=== PATIENT | female | born 1995 | race African-American/Black ===

== ENCOUNTER 2017-02-12 18:50 | Emergency (ER) | payer OTHER ==
[~2017-02-12] VITALS: Ht 157.5 cm; Wt 52.3 kg
[2017-02-12 18:52] VITALS: BP 109/53; PULSE 94; RESP 16; TEMP 97.8; O2SAT 100
--- NOTE | 2017-02-12 19:41 | PD ---
Physical Exam Time Seen by Provider: 19:38 Narrative 22 year old female presents for evaluation of RLQ pain. Pt has history of ovarian cyst and pain is similar. Pain is 7/10. Exacerbated by touch. No vaginal discharge or bleeding. No urinary symptoms or diarrhea. LMP was last week. Denies fever or chills. No significant medical history. Data Data Last Documented VS Vital Signs Date Time Temp Pulse Resp B/P Pulse Ox O2 Delivery O2 Flow Rate FiO2 02/12/17 18:52 97.8 94 16 109/53 100 Room Air [facility] Medical Record Reviewed: Yes Supervised Visit with TOMY: No Narrative Course 22 year old female presents to ED for evaluation of RLQ pain. She is with slightly elevated heart rate, afebrile. Pt appears without distress. Scripts No Active Prescriptions or Reported Meds Condition: Cindy Loya Feb 12, 2017 19:41
[2017-02-12] MEDS ORDERED: SODIUM CHLOR 0.9% 1000 ML INJ 1,000 ML IV SCH (20:01)
--- NOTE | 2017-02-12 20:10 | PD ---
HPI Chief Complaint: Abdominal Pain Time Seen by Provider: 20:07 Travel History International Travel<30 days: No Contact w/Intl Traveler<30days: No Traveled to known affect area: No History of Present Illness HPI Patient is a 22-year-old female presenting to emergency for evaluation of right lower quadrant abdominal pain. Patient states it started earlier today discomfort progressively worse. She states that she's felt nauseated and has vomited several times throughout the day the last time was 5 minutes prior to coming to the room. She denies any fevers or chills, she states the pain was worse when she was trying to run. She states that she was diagnosed with ovarian cysts when she was in 10th grade. She states the pain symptoms are similar to that but worse. She denies any fever, chills, diarrhea, urinary complaints. She states her last menstrual cycle ended on , she denies any sexual activity, vaginal discharge or bleeding. PFSH Past Medical History Medical History: Denies Significant Hx Reproductive: Yes (ovarian cysts) Immunizations Current: Yes Tetanus Vaccination: Never Vaccinated Influenza Vaccination: No ?: Not LMP: 02/09/2017 Past Surgical History Surgical History: No Previous Surgery Social History Alcohol Use: No Tobacco Use: No Substance Use: No Allergies-Medications (Allergen,Severity, Reaction): Coded Allergies: No Known Allergies (Unverified , 02/12/17) Reported Meds & Prescriptions Reported Meds & Active Scripts Active No Active Prescriptions or Reported Medications Review of Systems Except as stated in HPI: all other systems reviewed are Neg General / Constitutional: No: Fever, Chills HENT: No: Headaches Cardiovascular: No: Chest Pain or Discomfort Respiratory: No: Shortness of Breath Gastrointestinal: Positive: Nausea, Vomiting, Abdominal Pain (RLQ), No: Loss of Appetite Genitourinary: No: Dysuria Physical Exam Narrative GENERAL: Well-developed, well-nourished, alert female. Resting comfortably in no acute distress. SKIN: Focused skin assessment warm/dry. HEAD: Atraumatic. Normocephalic. EYES: Pupils equal and round. No scleral icterus. No injection or drainage. ENT: No nasal bleeding or discharge. Mucous membranes pink and moist. NECK: Trachea midline. No JVD. CARDIOVASCULAR: Regular rate and rhythm. No murmur appreciated. RESPIRATORY: No accessory muscle use. Clear to auscultation. Breath sounds equal bilaterally. GASTROINTESTINAL: Abdomen soft, tender to palpation in right lower quadrant, positive guarding, no rebound. Positive Bowel sounds. MUSCULOSKELETAL: No obvious deformities. No clubbing. No cyanosis. No edema. NEUROLOGICAL: Awake and alert. No obvious cranial nerve deficits. Motor grossly within normal limits. Normal speech. PSYCHIATRIC: Appropriate mood and affect; insight and judgment normal. Data Data Last Documented VS Vital Signs Date Time Temp Pulse Resp B/P Pulse Ox O2 Delivery O2 Flow Rate FiO2 02/12/17 22:45 70 118/62 99 Room Air 02/12/17 18:52 97.8 16 Orders Basic Metabolic Panel (Bmp) (02/12/17 20:01) Complete Blood Count With Diff (02/12/17 20:01) Urinalysis - C+S If Indicated (02/12/17 20:01) Ct Abd/Pel W Iv Contrast(Rout) (02/12/17 20:01) Iv Access Insert/Monitor (02/12/17 20:01) NPO (02/12/17 20:01) Ondansetron Inj (Zofran Inj) (02/12/17 20:15) Sodium Chlor 0.9% 1000 Ml Inj (Ns 1000 M (02/12/17 20:01) Sodium Chloride 0.9% Flush (Ns Flush) (02/12/17 20:15) Ed Urine Pregnancytest Poc (02/12/17 20:01) Iohexol 350 Inj (Omnipaque 350 Inj) (02/12/17 21:05) Labs Laboratory Tests Test 02/12/17 02/12/17:17 20:40 White Blood Count 11.9 TH/MM3 Red Blood Count 5.38 MIL/MM3 Hemoglobin 14.0 GM/DL Hematocrit 43.2 % Mean Corpuscular Volume 80.4 FL Mean Corpuscular Hemoglobin 26.0 PG Mean Corpuscular Hemoglobin 32.3 % Concent Red Cell Distribution Width 14.0 % Platelet Count 266 TH/MM3 Mean Platelet Volume 9.1 FL Neutrophils (%) (Auto) 85.5 % Lymphocytes (%) (Auto) 9.5 % Monocytes (%) (Auto) 4.0 % Eosinophils (%) (Auto) 0.4 % Basophils (%) (Auto) 0.6 % Neutrophils # (Auto) 10.2 TH/MM3 Lymphocytes # (Auto) 1.1 TH/MM3 Monocytes # (Auto) 0.5 TH/MM3 Eosinophils # (Auto) 0.0 TH/MM3 Basophils # (Auto) 0.1 TH/MM3 CBC Comment DIFF FINAL Differential Comment Sodium Level 137 MEQ/L Potassium Level 4.1 MEQ/L Chloride Level 102 MEQ/L Carbon Dioxide Level 29.1 MEQ/L Anion Gap 6 MEQ/L Blood Urea Nitrogen 14 MG/DL Creatinine 1.15 MG/DL Estimat Glomerular Filtration 72 ML/MIN Rate Random Glucose 104 MG/DL Calcium Level 10.2 MG/DL Urine Color YELLOW Urine Turbidity CLEAR Urine pH 5.0 Urine Specific [place] 1.019 Urine Protein 30 mg/dL Urine Glucose (UA) NEG mg/dL Urine Ketones TRACE mg/dL Urine Occult Blood NEG Urine Nitrite NEG Urine Bilirubin NEG Urine Urobilinogen LESS THAN 2.0 MG/DL Urine Leukocyte Esterase NEG Urine RBC LESS THAN 1 /hpf Urine WBC 1 /hpf Urine Squamous Epithelial <1 /hpf Cells Urine Mucus FEW /lpf Microscopic Urinalysis Comment CULT NOT INDICATED MDM Medical Decision Making Medical Screen Exam Complete: Yes Emergency Medical Condition: Yes Interpretation(s) Vital Signs Date Time Temp Pulse Resp B/P Pulse Ox O2 Delivery O2 Flow Rate FiO2 02/12/17 18:52 97.8 94 16 109/53 100 Room Air Differential Diagnosis Ovarian cysts versus torsion versus appendicitis versus diverticulitis versus other Narrative Course Patient is a 22-year-old female presenting to emergency with right lower quadrant abdominal pain that started this morning. Pain has progressively gotten worse throughout the day. Is now accompanied by nausea and vomiting. Labs and imaging were ordered and pending. Patient's vital signs are stable. Zofran ordered for nausea. Care of patient transferred to my attending physician who will determine patient's disposition. Scripts No Active Prescriptions or Reported Meds Condition: Stable Dianelys Medel [facility] Feb 12, 2017 20:10
[2017-02-12] MEDS ORDERED: SODIUM CHLORIDE 0.9% FLUSH 10 ML FLUSH IV FLUSH PRN (20:15)
[2017-02-12] MEDS ORDERED: ONDANSETRON HCL 4 MG/2 ML VIAL IVP ONE (20:15)
[2017-02-12 20:30] LABS: AUTOMATED NEUTROPHIL # 10.2 TH/MM3 (1.8-7.7); BASOPHIL # 0.1 TH/MM3 (0-0.2); BASOPHIL % 0.6 % (0.0-2.0); EOSINOPHIL % 0.4 % (0.0-4.0); HEMATOCRIT 43.2 % (35.0-46.0); HEMO FLAGS DIFF FINAL; LYMPH % 9.5 % (9.0-44.0); LYMPHOCYTE # 1.1 TH/MM3 (1.0-4.8); MEAN CELL VOLUME 80.4 FL (80.0-100.0); MEAN CORPUSCULAR HGB CONC 32.3 % (32.0-36.0); NEUT % 85.5 % (16.0-70.0); PLATELET COUNT 266 TH/MM3 (150-450); RED BLOOD COUNT 5.38 MIL/MM3 (4.00-5.30); WHITE BLOOD COUNT 11.9 TH/MM3 (4.0-11.0)
[2017-02-12 20:56] LABS: BICARBONATE 29.1 MEQ/L (21.0-32.0); POTASSIUM 4.1 MEQ/L (3.5-5.1)
[2017-02-12 21:01] LABS: BLOOD, URINE NEG (NEG); COMMENT (UR) CULT NOT INDICATED; CULTURE IF INDICATED CULT NOT INDICATED; GLUCOSE,URINE NEG (NEG); KETONE, URINE TRACE mg/dL (NEG); MUCUS URINE FEW /lpf (OCC); NITRITE,URINE NEG (NEG); SQUAMOUS EPITHELIAL CELL URINE <1 /hpf (0-5); URINE COLOR YELLOW (YELLW/STRAW)
[2017-02-12] MEDS ORDERED: IOHEXOL 350 MG/ML 10 ML VIAL (for RAD DIAG) IV ONE (21:05)
--- NOTE | 2017-02-12 21:17 | RADRPT ---
EXAM DATE/TIME: 02/12/2017 21:03 [place] COMPARISON: No previous studies available for comparison. INDICATIONS : Right lower quadrant pain. IV CONTRAST: 75 cc Omnipaque 350 (iohexol) IV ORAL CONTRAST: No oral contrast ingested. RADIATION DOSE: 4.74 CTDIvol (mGy) MEDICAL HISTORY : Ovarian cysts. SURGICAL HISTORY : None. ENCOUNTER: Initial ACUITY: 1 day PAIN SCALE: 7/10 LOCATION: Right lower quadrant TECHNIQUE: Volumetric scanning of the abdomen and pelvis was performed. Using automated exposure control and ad justment of the mA and/or kV according to patient size, radiation dose was kept as low as reasonably achievable to obtain optimal diagnostic quality images. FINDINGS: LOWER LUNGS: The visualized lower lungs are clear. LIVER: Homogeneous density without lesion. There is no dilation of the biliary tree. No calcified gallston es. SPLEEN: Normal size without lesion. PANCREAS: Within normal limits. KIDNEYS: Normal in size and shape. There is no mass, stone or hydronephrosis. ADRENAL GLANDS: Within normal limits. VASCULAR: There is no aortic aneurysm. BOWEL/MESENTERY: The stomach, small bowel, and colon demonstrate no acute abnormality. There is no free intraperitone al air or fluid. The appendix is not seen clearly but no right lower quadrant inflammatory changes ar e demonstrated. There is no free fluid. ABDOMINAL WALL: Within normal limits. RETROPERITONEUM: There is no lymphadenopathy. BLADDER: No wall thickening or mass. REPRODUCTIVE: Small bilateral ovarian follicles. No dominant cyst. No free fluid in the pelvic cul-de-sac. INGUINAL: There is no lymphadenopathy or hernia. MUSCULOSKELETAL: Within normal limits for patient age. CONCLUSION: Normal CT of the abdomen and pelvis. Ar Castellanos MD on February 12, 2017 at 21:12 Board Certified Radiologist. This report was verified electronically.
--- NOTE | 2017-02-12 22:33 | PD ---
Data Data Last Documented VS Vital Signs Date Time Temp Pulse Resp B/P Pulse Ox O2 Delivery O2 Flow Rate FiO2 02/12/17 18:52 97.8 94 16 109/53 100 Room Air Orders Basic Metabolic Panel (Bmp) (02/12/17 20:01) Complete Blood Count With Diff (02/12/17 20:01) Urinalysis - C+S If Indicated (02/12/17 20:01) Ct Abd/Pel W Iv Contrast(Rout) (02/12/17 20:01) Iv Access Insert/Monitor (02/12/17 20:01) NPO (02/12/17 20:01) Ondansetron Inj (Zofran Inj) (02/12/17 20:15) Sodium Chlor 0.9% 1000 Ml Inj (Ns 1000 M (02/12/17 20:01) Sodium Chloride 0.9% Flush (Ns Flush) (02/12/17 20:15) Ed Urine Pregnancytest Poc (02/12/17 20:01) Iohexol 350 Inj (Omnipaque 350 Inj) (02/12/17 21:05) Labs Laboratory Tests Test 02/12/17 02/12/17 20:17 20:40 White Blood Count 11.9 TH/MM3 Red Blood Count 5.38 MIL/MM3 Hemoglobin 14.0 GM/DL Hematocrit 43.2 % Mean Corpuscular Volume 80.4 FL Mean Corpuscular Hemoglobin 26.0 PG Mean Corpuscular Hemoglobin 32.3 % Concent Red Cell Distribution Width 14.0 % Platelet Count 266 TH/MM3 Mean Platelet Volume 9.1 FL Neutrophils (%) (Auto) 85.5 % Lymphocytes (%) (Auto) 9.5 % Monocytes (%) (Auto) 4.0 % Eosinophils (%) (Auto) 0.4 % Basophils (%) (Auto) 0.6 % Neutrophils # (Auto) 10.2 TH/MM3 Lymphocytes # (Auto) 1.1 TH/MM3 Monocytes # (Auto) 0.5 TH/MM3 Eosinophils # (Auto) 0.0 TH/MM3 Basophils # (Auto) 0.1 TH/MM3 CBC Comment DIFF FINAL Differential Comment Sodium Level 137 MEQ/L Potassium Level 4.1 MEQ/L Chloride Level 102 MEQ/L Carbon Dioxide Level 29.1 MEQ/L Anion Gap 6 MEQ/L Blood Urea Nitrogen 14 MG/DL Creatinine 1.15 MG/DL Estimat Glomerular Filtration 72 ML/MIN Rate Random Glucose 104 MG/DL Calcium Level 10.2 MG/DL Urine Color YELLOW Urine Turbidity CLEAR Urine pH 5.0 Urine Specific [place] 1.019 Urine Protein 30 mg/dL Urine Glucose (UA) NEG mg/dL Urine Ketones TRACE mg/dL Urine Occult Blood NEG Urine Nitrite NEG Urine Bilirubin NEG Urine Urobilinogen LESS THAN 2.0 MG/DL Urine Leukocyte Esterase NEG Urine RBC LESS THAN 1 /hpf Urine WBC 1 /hpf Urine Squamous Epithelial <1 /hpf Cells Urine Mucus FEW /lpf Microscopic Urinalysis Comment CULT NOT INDICATED MDM Medical Record Reviewed: Yes Supervised Visit with TOMY: Yes Narrative Course I, Dr. Palma, have reviewed the advance practice practitioner's documentation and am in agreement, met with the patient face to face, made the diagnosis, and the medical decision making was done by me. *My assessment and Findings: Please refer the mid-level notes. CBC & BMP Diagram 02/12/17 20:17 Urinalysis: No UTI Last 24 hours Impressions Abdomen/Pelvis CT 02/12/172000 Signed Impressions: Service Date/Time: Sunday, February 12, 2017 21:03 - CONCLUSION: Normal CT of the abdomen and pelvis. Ar Castellanos MD The patient is resting comfortably and feels better, is alert and in no distress. The patients results and examination findings were discussed. The repeat examination is unremarkable and benign. The history, exam, diagnostic testing, and current condition do not suggest any significant pathology to warrant further testing, continued ED treatment, admission, or surgical evaluation at this point. The vital signs have been stable. The patient does not have uncontrollable pain, intractable vomiting, or other significant symptoms. The patient's condition is stable and appropriate for discharge. The patient will pursue further outpatient evaluation with a primary care physician or other designated or consulting physician as indicated in the discharge instructions. The patient expressed understanding and was agreeable with this plan. Diagnosis Primary Impression: Abdominal pain Qualified Code: R10.31 - Right lower quadrant abdominal pain Referrals: Primary Care Physician 2 days Additional Instruction: You have a choice when it comes to health care, and we are glad that you chose [facility]. Hopefully, we have met your expectations on today's visit. You are welcome to return to [facility] at any time, as we are committed to meeting the health care needs of our community. Med/Other Pt SpecificInfo: No Change to Meds Scripts No Active Prescriptions or Reported Meds Disposition: 01 DISCHARGE HOME Condition: Kemal Merchant MD Feb 12, 2017 22:33
[2017-02-12 22:45] VITALS: BP 118/62; PULSE 70; O2SAT 99
== END 2017-02-12 23:27 | disposition home or self-care (01) ==
LOC: NEPD 18:50
DX: R10.31 Right lower quadrant pain (principal); R11.2 Nausea with vomiting, unspecified
CPT/HCPCS: 74177; 80048; 81001; 84703; 85025; 96361; 96374; 99284; J2405; J7030; Q9967